=== PATIENT | female | born 1960 | race Caucasian/White ===

== ENCOUNTER 2019-12-14 16:15 | Outpatient (CLI) | payer BC, SELFPAY ==
[2019-12-14 17:33] LABS: Blood Urea Nitrogen 15 mg/dL (7-17); Calcium 9.2 mg/dL (8.4-10.2); Carbon Dioxide 30 mmol/L (22-30); Chloride 105 mmol/L (98-107); Estimated Glomerular Filt Rate > 60; Glucose 112 mg/dL (65-105); Magnesium 2.4 mg/dL (1.6-2.3); Potassium 4.5 mmol/L (3.4-5.0); Sodium 139 mmol/L (137-145)
[2019-12-14 18:29] LABS: Free T4 Free Thyroxine 0.98 ng/mL (0.78-2.19)
== END 2019-12-14 16:16 | disposition home or self-care (01) ==
PROVIDERS: PCP Internal Medicine; Visit Provider Internal Medicine
DX: R00.2 Palpitations (principal)
CPT/HCPCS: 36415; 80048; 83735; 84439; 84443

== ENCOUNTER → 2020-06-05 13:29 | Outpatient (CLI) | payer BC, SELFPAY ==
--- NOTE | ~2020-06-05 | MM_ITS ---
EXAMINATION: MM screening caio BI w frida HISTORY: Screening TECHNIQUE: Craniocaudal and mediolateral oblique 3-D tomosynthesis images were obtained and synthetic 2-D images were generated. CAD analysis was submitted and interpreted. COMPARISON: Comparison to multiple prior studies sequentially, with oldest reviewed study dated 07/07. BREAST PARENCHYMAL COMPOSITION: There are scattered areas of fibroglandular density. FINDINGS: There is no evidence of suspicious mass, calcification, or architectural distortion to sugg est malignancy in either breast. There has been no suspicious interval change. IMPRESSION: 1. No mammographic evidence of malignancy. 2. Recommend routine screening mammography in one year. BI-RADS Category 1: Negative Reviewed, dictated and finalized at location A.
== END ==
PROVIDERS: PCP Internal Medicine; Visit Provider Student in an Organized Health Care Education/Training Program
DX: Z12.31 Encounter for screening mammogram for malignant neoplasm of breast (principal)
CPT/HCPCS: 77063; 77067

== ENCOUNTER 2020-08-14 01:18 | Outpatient (CLI) | payer BC, SELFPAY ==
[2020-08-14 19:47] LABS: SARS-CoV-2 RNA PCR Negative
== END 2020-08-14 01:19 | disposition home or self-care (01) ==
LOC: ANHCOVIDDT 01:19
PROVIDERS: PCP Internal Medicine; Visit Provider Internal Medicine Critical Care Medicine
DX: Z20.828 Contact with and (suspected) exposure to other viral communicable diseases (principal)
CPT/HCPCS: 87635; C9803; U0003

== ENCOUNTER 2020-09-11 00:37 | Outpatient (CLI) | payer BC, SELFPAY ==
[2020-09-11 18:51] LABS: SARS-CoV-2 RNA PCR Negative
== END 2020-09-11 00:38 | disposition home or self-care (01) ==
LOC: ANHCOVIDDT 00:37
PROVIDERS: PCP Internal Medicine; Visit Provider Internal Medicine Critical Care Medicine
DX: R68.89 Other general symptoms and signs (principal); Z20.828 Contact with and (suspected) exposure to other viral communicable diseases
CPT/HCPCS: 87635; C9803; U0003

== ENCOUNTER 2020-09-18 02:39 | Outpatient (CLI) | payer BC, SELFPAY ==
[2020-09-18 22:41] LABS: SARS-CoV-2 RNA PCR Negative
== END 2020-09-18 02:40 | disposition home or self-care (01) ==
LOC: ANHCOVIDDT 02:39
PROVIDERS: PCP Internal Medicine; Visit Provider Internal Medicine Critical Care Medicine
DX: R68.89 Other general symptoms and signs (principal); Z20.828 Contact with and (suspected) exposure to other viral communicable diseases
CPT/HCPCS: 87635; C9803; U0003

== ENCOUNTER 2020-09-20 08:33 | Outpatient (CLI) | payer BC, SELFPAY ==
--- NOTE | 2020-11-06 14:15 | WPDSLEEPSTUD ---
Sleep Study Date of Study: 09/20/20 Ordering Provider: Rashid Easton MD Interpreting Physician: Monika Shaw MD Sleep Study Type: Polysomnogram Height: 1.73 m Weight: 99.79 kg Body Mass Index: 33.4 Neck Circumference: 40.64 cm [place]: 6 Reason for Sleep Study Hypersomnia Sleep History Beckie Pena is a 60-year-old female with a history of mild obstructive sleep apnea on a basic nocturnal polysomnogram June 13, 2019. Her AHI was 6.5. Her REM AHI was 18.6 in the lateral position. She did not have supine REM on the test. She presents to repeat this study with a sleep aid. She has a history of snoring at night frequently and frequently this is loud enough that others complain about it. She wakes up several times at night to urinate. She is able to fall asleep but wakes up every 1-2 hours. She has used sleeping pills to help initiate sleep. She occasionally has trouble sleeping with a cold, does not sweat excessively at night. She occasionally has breathing problems at night observed by others. She rarely notices her heart pounding or beating irregularly at night. She does not fall asleep involuntarily or while driving. She does not have loss of muscle tone with strong emotion. She rarely has daytime difficulties due to excessive sleepiness. She does not have a feeling of paralysis on waking or falling asleep and does not have vivid dreamlike scenes upon awakening or falling asleep. She occasionally remembers her dreams. She does not have feelings of sadness, depression, or anxiety. She does not have muscular tension. She frequently has crawly and achy feelings in her legs, denies leg pain at night. She denies Morning jaw pain. She rarely grinds her teeth during sleep. She occasionally is bothered by pain at night and frequently wakes up feeling stiff in the morning. She has palpitations, depression, fatigue, memory problems, is not bothered by pain during the day and is not awakened by pain at night. She occasionally wakes up feeling stiff in the morning with sore achy muscles. She rarely wakes with pain in the neck and spine. she takes omeprazole regularly. She has memory problems and palpitations. She wakes up feeling refreshed only occasionally. Bedtime is 10 p.m., taking 10-15 minutes to fall asleep, typically waking 3 to 4 times at night for 10-15 minutes. During that time, she will go to the bathroom and take another melatonin. She wakes up in the morning at 57:00 am. On the weekend, she goes to bed at 10:00 pm, wakes at 8:00 am. She does not take naps. A short nap may be refreshing. She is drowsy in the morning for 1 hour or longer. She feels better in the afternoon. Habits: Quit tobacco 10 years ago. Three cups of caffeine per day. Occasional alcohol. No recreational drugs. [facility] Past Medical History Medical History (Updated 11/07/20 @ 18:18 by Monika Shaw MD) Adult BMI 39.0-39.9 kg/sq m BMI 36.0-36.9,adult BMI 37.0-37.9, adult Chronic pain of left knee Cough Encounter for general adult medical examination w/o abnormal findings GERD (gastroesophageal reflux disease) Grade I diastolic dysfunction Heart burn Heart palpitations High triglycerides History of COVID-19 History of superficial phlebitis Hyperlipidemia Hypersomnia Hypertension Neck pain Neck pain on left side On shelter drug therapy PVC (premature ventricular contraction) Varicosities of leg Vitamin D deficiency Family History Family History Mother Family history of arthritis Father Family history of chronic obstructive pulmonary disease Family history of lung cancer Grandparent Diabetes mellitus Family history of malignant neoplasm of esophagus Family history of emphysema Family history of throat cancer Sibling Family history of malignant melanoma Social History Social History Smoking status: Never sm
[2020-11-07 18:17] VITALS: BMI 33.4
== END 2020-09-20 08:34 | disposition home or self-care (01) ==
LOC: ANHCSM 08:45
PROVIDERS: PCP Internal Medicine; Visit Provider Internal Medicine
DX: G47.10 Hypersomnia, unspecified (principal); G47.33 Obstructive sleep apnea (adult) (pediatric)
CPT/HCPCS: 95810

== ENCOUNTER 2020-10-01 09:10 | Outpatient (NON) | payer BC, SELFPAY ==
[2020-10-01 17:11] LABS: SARS-CoV-2 RNA PCR Positive
== END 2020-10-01 09:11 ==
LOC: ANHCOVIDDT 09:11
PROVIDERS: PCP Internal Medicine; Visit Provider Internal Medicine
DX: U07.1 COVID-19 (principal)
CPT/HCPCS: 87635; C9803; U0003

== ENCOUNTER → 2021-02-05 08:49 | Outpatient (CLI) | payer BC, SELFPAY ==
--- NOTE | ~2021-02-05 | XR_ITS ---
EXAMINATION: XR lumbar spine 6V w bending DATE: 02/05/2021 09:40 INDICATION: Low back pain TECHNIQUE: Anteroposterior, lateral in neutral, flexion and extension, and bilateral oblique views of the lumbar spine, and cone-down lateral view of the lumbosacral junction were obtained. COMPARISON: 12/13/2018 FINDINGS: There is a stable, chronic compression fracture T11 with 3/5 loss of central vertebral body height. There is severe loss of intervertebral disc space height at L5-S1, unchanged. The remaining intervertebral disc space heights are normal. The lumbar vertebral body heights are maintained. There is no lumbar fracture. Bone alignment is normal. There is no laxity with flexion or extension. There is moderate to severe facet osteoarthritis of the lower lumbar spine. A moderate volume of colonic s tool is present. IMPRESSION: 1. Severe lower lumbar spondylosis without acute findings or significant interval change. 2. Chronic T11 compression fracture without significant change. Reviewed, dictated and finalized at location A. IMPRESSION: 1. Severe lower lumbar spondylosis without acute findings or significant interv al change. 2. Chronic T11 compression fracture without significant change.
== END ==
PROVIDERS: PCP Internal Medicine; Visit Provider Internal Medicine
DX: M47.817 Spondylosis without myelopathy or radiculopathy, lumbosacral region (principal); M48.54XA Collapsed vertebra, not elsewhere classified, thoracic region, initial encounter for fracture
CPT/HCPCS: 72114

== ENCOUNTER → 2021-03-21 13:45 | Outpatient (REF) | payer BC, SELFPAY | LOC: ANHLAB 13:45 | PROVIDERS: PCP Internal Medicine; Visit Provider Nurse Practitioner | DX: D49.2 Neoplasm of unspecified behavior of bone, soft tissue, and skin (principal) | CPT/HCPCS: 88305 ==

== ENCOUNTER 2021-03-29 21:04 | Emergency (ER) | payer BC, SELFPAY ==
--- NOTE | ~2021-03-29 | XR_ITS ---
EXAMINATION: XR knee LT min 4V DATE: 03/29/2021 21:37 INDICATION: Left knee pain. TECHNIQUE: 4 views of left knee were obtained. COMPARISON: None. FINDINGS: Bone alignment is normal. No fracture. There is mild tricompartmental osteoarthritis. No kn ee joint effusion. IMPRESSION: 1. Mild left knee osteoarthritis. Reviewed, dictated and finalized at location A.
--- NOTE | ~2021-03-29 | XR_ITS ---
EXAMINATION: XR foot LT min 3V DATE: 03/29/2021 21:38 INDICATION: Left foot pain. TECHNIQUE: 4 views of left foot were obtained. COMPARISON: None. FINDINGS: There is a nondisplaced, comminuted, intra-articular fracture of base of fifth metatarsal. There is mild osteoarthritis of some of the midfoot joints and interphalangeal joints. There are enth esophytes at the posterior and plantar aspects of calcaneal tuberosity. IMPRESSION: 1. Nondisplaced, comminuted, intra-articular fracture of base of fifth metatarsal. Reviewed, dictated and finalized at location A. IMPRESSION: 1. Nondisplaced, comminuted, intra-articular fracture of base of fifth metatars al.
--- NOTE | ~2021-03-29 | XR_ITS ---
EXAMINATION: XR hand LT min 3V DATE: 03/29/2021 21:39 INDICATION: Left hand pain. TECHNIQUE: 3 views of left hand were obtained. COMPARISON: None. FINDINGS: Bone alignment is normal. No fracture. There is mild osteoarthritis of triscaphe joint, fir st carpometacarpal joint, and some of the metacarpophalangeal joints and interphalangeal joints. Ther e is moderate osteoarthritis of third distal interphalangeal joint and severe osteoarthritis of secon d distal interphalangeal joint. IMPRESSION: 1. Polyarticular osteoarthritis. Reviewed, dictated and finalized at location A.
[2021-03-29 21:07] VITALS: BP 151/81; PULSE 84; RESP 18; TEMP 36.6; O2SAT 98
[2021-03-29 21:42] VITALS: BP 141/84; PULSE 75; RESP 14; TEMP 36.9; O2SAT 100
--- NOTE | 2021-03-29 21:52 | ED.FALL ---
HPI - Fall General Chief Complaint: Fall Stated Complaint: fall, left foot knee and hand pain Time Seen by Provider: 03/29/21 21:31 Source: RN notes reviewed History of Present Illness HPI Narrative: Patient presents to emergency department from home for fall. Patient states that just prior to arrival she was walking in heels when she slipped on her left foot and her left foot rolled she states she fell to the ground catching herself with her left lateral hand striking her left knee patient notes pain in her left lateral foot as well as her left lateral hand and her left knee she denies striking her head or any loss of consciousness she denies any chest pain shortness of breath abdominal pain nausea vomiting or any other symptoms. States she is taking no medication for the pain Related Data Allergies Allergy/AdvReac Type Severity Reaction Status Date / Time nitrofurantoin Allergy Itching Verified 03/29/21 21:11 [From Macrobid] Review of Systems Review of Systems: Narrative: Gen.: Denies fevers or chills Eyes: Denies eye pain or visual change ENT: Denies facial pain Respiratory: Denies shortness of breath CV: Denies chest pain GI: Denies abdominal pain nausea, emesis Musculoskeletal: See HPI Neuro: Denies head injury or loss of consciousness Skin: Denies rash Except as documented, all other systems reviewed and negative [facility] Past Medical History Medical History (Updated 03/29/21 @ 21:56 by Evens Dean DO) Patient denies significant medical history Family History Family History (Updated 06/01/14 @ 07:13 by DOCTOR UNKNOWN) Grandparent Family history of chronic obstructive pulmonary disease Family history of throat cancer Other Diabetes mellitus Social History Social History Smoking status: Former smoker Alcohol intake: current Exam Narrative: Exam Narrative: APPEARANCE: No acute distress, nontoxic, resting in bed EYES: EOMI HEENT: Normocephalic, atraumatic, OMM TMs clear bilaterally RESPIRATORY: No respiratory distress Clear to auscultation bilaterally with no rhonchi wheezing or rales. CARDIOVASCULAR: Regular rate and rhythm without murmurs rubs or gallops. ABDOMINAL: Soft, nontender, nondistended, no rebound or guarding MUSCULOSKELETAl: Moves all extremities. No clubbing, cyanosis or edema. No tenderness of the right upper and lower extremity, tender palpation of the left lateral dorsal hand over the fourth and fifth metacarpal no tenderness remainder of the hand or wrist full flexion-extension of all 5 MCP and IP joints, radial pulse 2+ neurovascular intact no tenderness of the left elbow or wrist, no tenderness of the left hip, tender palpation left anterior knee with mild abrasion for range of motion without pain, no tenderness to left ankle, tender palpation of the left lateral foot at the base of the fifth metatarsal dorsalis pedis pulse 2+ neurovascular intact NEURO: Awake and alert x 4. Following commands, speech normal, no focal deficits SKIN:: Warm, dry. No rashes lesions or abrasions PSYCHIATRIC: Normal affect/mood, Course Course Emergency Course: Patient states she fractured her right fifth metatarsal approximately 6 years ago states she does have a boot at her house from that Discussed with patient results of workup and diagnosis. Discussed need for follow-up with primary care, proper use of medication, and reasons to return to the emergency department. Patient understands and agrees to current treatment plan Vital Signs Vital signs: Vital Signs Temperature 97.8 F 03/29/21 21:07 Pulse Rate 84 03/29/21 21:07 Respiratory Rate 18 03/29/21 21:07 Blood Pressure 151/81 H 03/29/21 21:07 Pulse Oximetry 98 03/29/21 21:07 Temperature 98.4 F 03/29/21 21:42 Pulse Rate 75 03/29/21 21:42 Respiratory Rate 14 03/29/21 21:42 Blood Pressure 141/84 H 03/29/21 21:42 Pulse Oximetry 100 03/29/21 21:42 M
[2021-03-29] MEDS: HYDROcodone/acetaminophen (*CRX) 5-325 MG TABLET 1 TAB PO (22:00)
== END 2021-03-29 22:12 | disposition home or self-care (01) ==
PROVIDERS: Emergency Provider Emergency Medicine; PCP Internal Medicine
DX: S92.355A Nondisplaced fracture of fifth metatarsal bone, left foot, initial encounter for closed fracture (principal); S80.02XA Contusion of left knee, initial encounter; S60.222A Contusion of left hand, initial encounter; Z87.891 Personal history of nicotine dependence; W01.0XXA Fall on same level from slipping, tripping and stumbling without subsequent striking against object, initial encounter
CPT/HCPCS: 73130; 73564; 73630; 99284; A9270

== ENCOUNTER 2021-09-20 00:17 | Day surgery (SDC) | payer BC, SELFPAY ==
[2021-09-11 13:35] VITALS: BMI 38.2
--- NOTE | 2021-09-19 13:42 | PM.HPGS ---
History of Present Illness History of Present Illness Consent: Risks, benefits, and alternatives have been discussed and questions answered. Patient agrees to proceed with procedure. Chief complaint: hx of colon polyps Narrative: Beckie Pena is a 61 year old female referred for colon cancer screening. She had 3 polyps removed 7 years ago Review of Systems Review of Systems: All systems reviewed & are unremarkable except as noted in HPI and below PMFSH Past Medical History Medical History Adult BMI 39.0-39.9 kg/sq m Bilateral foot pain BMI 36.0-36.9,adult BMI 37.0-37.9, adult Chronic pain of left knee Colon cancer screening Cough DJD (degenerative joint disease) of knee Encounter for general adult medical examination w/o abnormal findings Encounter for preventive health examination GERD (gastroesophageal reflux disease) Grade I diastolic dysfunction Heart burn Heart palpitations High triglycerides History of COVID-19 History of superficial phlebitis Hx of colonic polyps Hyperlipidemia Hypersomnia Hypertension Low back pain Lumbar radiculopathy Neck pain Neck pain on left side Non-healing skin lesion On terminal make up operator drug therapy FLORY on CPAP Patient denies significant medical history PVC (premature ventricular contraction) Varicosities of leg Vitamin D deficiency Family History Family History Mother Family history of arthritis Father Family history of chronic obstructive pulmonary disease Family history of lung cancer Grandparent Diabetes mellitus Family history of malignant neoplasm of esophagus Family history of emphysema Family history of throat cancer Sibling Family history of malignant melanoma Grandparent Family history of chronic obstructive pulmonary disease Family history of throat cancer Social History Social History Smoking status: Former smoker Tobacco type: cigarettes Second hand tobacco smoke exposure: No Smoking end date: 10/05/06 Alcohol intake: current Alcohol use details: Monthly Substance use: never Living arrangements: with family Spiritual care concerns: No Meds Home Medications and Allergies Home Medications Medication Instructions Recorded Confirmed Type ginkgo biloba 120 mg tablet 120 mg PO DAILY 12/14/19 09/20/21 History mecobalamin (vitamin B12) 5,000 2,500 mcg PO DAILY tablet 12/14/19 09/20/21 History mcg disintegrating tablet niacin 50 mg tablet 500 mg PO DAILY tablet 07/19/20 09/20/21 History cholecalciferol (vitamin D3) 25 25 mcg PO DAILY 10/11/20 09/20/21 History mcg (1,000 unit) tablet omega-3 fatty acids 1,000 mg 2,000 mg PO DAILY cap 10/11/20 09/20/21 History capsule zinc 50 mg tablet 50 mg PO DAILY 10/11/20 09/20/21 History lysine 500 mg tablet 500 mg PO DAILY 02/05/21 09/20/21 History melatonin 12 mg tablet 12 mg PO HS 02/05/21 09/20/21 History omeprazole 40 mg capsule,delayed 40 mg PO DAILY #90 cap 03/12/21 09/20/21 Rx release calcium carbonate 500 mg calcium 500 mg PO DAILY 07/08/21 09/20/21 History (1,250 mg) tablet tramadol 50 mg tablet 100 mg PO Q6H PRN #30 tablet 08/14/21 09/20/21 Rx Nexlizet 1 tablet PO DAILY 09/11/21 09/20/21 History cyclobenzaprine 10 mg PO TID PRN 09/11/21 09/20/21 History hydrochlorothiazide 12.5 mg PO DAILY 09/11/21 09/20/21 History metoprolol tartrate 12.5 mg PO BID 09/11/21 09/11/21 History trazodone 50 - 100 mg PO HS PRN 09/11/21 09/20/21 History Allergies Allergy/AdvReac Type Severity Reaction Status Date / Time nitrofurantoin Allergy Unknown Itching Verified 09/20/21 06:49 prednisone Allergy Unknown Agitated Verified 09/20/21 06:49 [id number]-[id number]-DbS Reductase AdvReac Mild myalgia Verified 09/20/21 06:49 Inhibitor [Wlbnjbf-Kjq-Tby Reductase Inhibitor] Exam Resp: Auscultation: clear to a
[2021-09-20 06:51] VITALS: BP 149/83; PULSE 84; RESP 17; TEMP 37.1; O2SAT 99; BMI 39.1
[2021-09-20] MEDS: LACTATED RINGERS 1,000 ML 150 ML IV CONT (06:55)
--- NOTE | 2021-09-20 07:06 | WPDANESEPPF ---
Anes - Initial Pre Proc Eval Procedure: Operation Date: 09/20/21 08:00 Proposed Procedures p Screening Colonoscopy - Molina Champion MD Date/Time: 09/20/21 07:06 Surgeon: Molina Champion MD Pre Op Diagnosis: hx of colon polyps Patient Data Age: 61 Gender: F Height: 1.73 m Weight: 116.7 kg Last Vital Signs Temp 37.1 C 09/20/21 06:51 Pulse 84 09/20/21 06:51 Resp 17 09/20/21 06:51 BP 149/83 H 09/20/21 06:51 Pulse Ox 99 09/20/21 06:51 Allergies Allergy/AdvReac Type Severity Reaction Status Date / Time nitrofurantoin Allergy Unknown Itching Verified 09/20/21 06:49 prednisone Allergy Unknown Agitated Verified 09/20/21 06:49 Jxeqegh-[id number]-XmM Reductase AdvReac Mild myalgia Verified 09/20/21 06:49 Inhibitor [Ouvyaeu-Cxv-Rti Reductase Inhibitor] Home Medications Medication Instructions Recorded Confirmed Type ginkgo biloba 120 mg tablet 120 mg PO DAILY 12/14/19 09/20/21 History mecobalamin (vitamin B12) 5,000 2,500 mcg PO DAILY tablet 12/14/19 09/20/21 History mcg disintegrating tablet niacin 50 mg tablet 500 mg PO DAILY tablet 07/19/20 09/20/21 History cholecalciferol (vitamin D3) 25 25 mcg PO DAILY 10/11/20 09/20/21 History mcg (1,000 unit) tablet omega-3 fatty acids 1,000 mg 2,000 mg PO DAILY cap 10/11/20 09/20/21 History capsule zinc 50 mg tablet 50 mg PO DAILY 10/11/20 09/20/21 History lysine 500 mg tablet 500 mg PO DAILY 02/05/21 09/20/21 History melatonin 12 mg tablet 12 mg PO HS 02/05/21 09/20/21 History omeprazole 40 mg capsule,delayed 40 mg PO DAILY #90 cap 03/12/21 09/20/21 Rx release calcium carbonate 500 mg calcium 500 mg PO DAILY 07/08/21 09/20/21 History (1,250 mg) tablet tramadol 50 mg tablet 100 mg PO Q6H PRN #30 tablet 08/14/21 09/20/21 Rx bempedoic acid-ezetimibe [Nexlizet] 1 tablet PO DAILY 09/11/21 09/20/21 History cyclobenzaprine 10 mg PO TID PRN 09/11/21 09/20/21 History hydrochlorothiazide 12.5 mg PO DAILY 09/11/21 09/20/21 History metoprolol tartrate 12.5 mg PO BID 09/11/21 09/11/21 History trazodone 50 - 100 mg PO HS PRN 09/11/21 09/20/21 History Patient hx anesthesia problems: none Family hx anesthesia problems: none Results Review: All pre-operative results and documents have been reviewed as part of the pre-operative evaluation. [facility] Past Medical History Medical History Adult BMI 39.0-39.9 kg/sq m Bilateral foot pain BMI 36.0-36.9,adult BMI 37.0-37.9, adult Chronic pain of left knee Colon cancer screening Cough DJD (degenerative joint disease) of knee Encounter for general adult medical examination w/o abnormal findings Encounter for preventive health examination GERD (gastroesophageal reflux disease) Grade I diastolic dysfunction Heart burn Heart palpitations High triglycerides History of COVID-19 History of superficial phlebitis Hx of colonic polyps Hyperlipidemia Hypersomnia Hypertension Low back pain Lumbar radiculopathy Neck pain Neck pain on left side Non-healing skin lesion On terminal make up operator drug therapy FLORY on CPAP Patient denies significant medical history PVC (premature ventricular contraction) Varicosities of leg Vitamin D deficiency Family History Family History Mother Family history of arthritis Father Family history of chronic obstructive pulmonary disease Family history of lung cancer Grandparent Diabetes mellitus Family history of malignant neoplasm of esophagus Family history of emphysema Family history of throat cancer Sibling Family history of malignant melanoma Grandparent Family history of chronic obstructive pulmonary disease Family history of throat cancer Social History Social History Smoking status: Former smoker Tobacco type: cigarettes Second hand tobacco smoke exposure: No Smoking end date: 10/05/06 Alcoh
[2021-09-20 08:09] VITALS: BP 98/53; PULSE 56; RESP 12; O2SAT 97
[2021-09-20 08:22] VITALS: BP 106/58; PULSE 54; RESP 12; O2SAT 100
[2021-09-20 08:29] VITALS: BP 133/68; PULSE 57; RESP 12; O2SAT 100
== END 2021-09-20 08:38 | disposition home or self-care (01) ==
PROVIDERS: PCP Internal Medicine; Visit Provider Internal Medicine Gastroenterology
PROC: 0DJD8ZZ Inspection of Lower Intestinal Tract, Via Natural or Artificial Opening Endoscopic (ICD-10-PCS; CPT 45378; principal; 2021-09-20 08:00)
DX: Z12.11 Encounter for screening for malignant neoplasm of colon (principal); Z86.010 Personal history of colon polyps; M19.90 Unspecified osteoarthritis, unspecified site; K21.9 Gastro-esophageal reflux disease without esophagitis; R00.2 Palpitations; E78.1 Pure hyperglyceridemia; Z86.16 Personal history of COVID-19; E78.5 Hyperlipidemia, unspecified; G47.10 Hypersomnia, unspecified; I10 Essential (primary) hypertension; M54.16 Radiculopathy, lumbar region; G47.33 Obstructive sleep apnea (adult) (pediatric); I49.3 Ventricular premature depolarization; E55.9 Vitamin D deficiency, unspecified; I83.90 Asymptomatic varicose veins of unspecified lower extremity; Z87.891 Personal history of nicotine dependence; E66.01 Morbid (severe) obesity due to excess calories; Z68.39 Body mass index [BMI] 39.0-39.9, adult
CPT/HCPCS: 45378; J2001; J2704; J7120

== ENCOUNTER → 2021-11-22 13:20 | Outpatient (CLI) | payer BC, SELFPAY ==
--- NOTE | ~2021-11-22 | MM_ITS ---
EXAMINATION: MM screening caio BI w frida HISTORY: Screening TECHNIQUE: Craniocaudal and mediolateral oblique 3-D tomosynthesis images were obtained and synthetic 2-D images were generated. CAD analysis was submitted and interpreted. COMPARISON: Comparison to multiple prior studies sequentially, with oldest reviewed study dated 01/22. BREAST PARENCHYMAL COMPOSITION: There are scattered areas of fibroglandular density. FINDINGS: There are developing asymmetries in the upper outer quadrant of the right breast, middle th ird. The left breast is stable without evidence for malignancy. IMPRESSION: 1. Developing right breast asymmetries. 2. Additional mammographic views and possible breast ultrasound are recommended. BI-RADS Category 0: Incomplete: Needs additional imaging evaluation. Reviewed, dictated and finalized at location A. HT CHECKER IMPRESSION: 1. Developing right breast asymmetries. 2. Additional mammographic views and possible breast ultrasound are recommended . BI-RADS Category 0: Incomplete: Needs additional imaging evaluation.
== END ==
PROVIDERS: PCP Internal Medicine; Visit Provider Obstetrics & Gynecology
DX: Z12.31 Encounter for screening mammogram for malignant neoplasm of breast (principal); R92.8 Other abnormal and inconclusive findings on diagnostic imaging of breast
CPT/HCPCS: 77063; 77067

== ENCOUNTER → 2021-11-29 09:11 | Outpatient (CLI) | payer BC, SELFPAY ==
--- NOTE | ~2021-11-29 | MMUS_ITS ---
EXAMINATION: MM diagnostic caio RT w frida, US breast RT limited HISTORY: Follow-up right breast asymmetries TECHNIQUE: Additional 3-D tomosynthesis images of the right breast were performed and synthetic 2-D i mages were generated. CAD analysis was submitted and interpreted. High resolution Limited right breas t ultrasound was performed. COMPARISON: Comparison to multiple prior studies sequentially, with oldest reviewed study dated 01/22. BREAST PARENCHYMAL COMPOSITION: Breast composed of scattered areas of fibroglandular density. FINDINGS: MAMMOGRAPHIC FINDINGS: There are no suspicious masses, calcifications or architectural distortion in the right breast to sug gest malignancy. Area of asymmetry is less dense with spot compression views in the upper outer quadr ant. ULTRASOUND: Limited right breast ultrasound: At 10:00, 5 cm from the nipple, there is an oval hypoechoic mass skip suring 6 x 4 x 5 mm without internal vascularity or significant posterior features, likely benign. At 11:00, 4 cm from the nipple, there is an oval hypoechoic mass measuring 4 x 2 x 4 mm, likely benign. Parallel orientation, no internal vascularity and no posterior features. IMPRESSION: 1. Probable benign right breast masses. 2. Recommend 6 month follow-up Limited right breast ultrasound BI-RADS category 3, probably benign findings. Reviewed, dictated and finalized at location B. LEADER IMPRESSION: 1. Probable benign right breast masses. 2. Recommend 6 month follow-up Limited right breast ultrasound BI-RADS category 3, probably benign findings.
== END ==
PROVIDERS: PCP Internal Medicine; Visit Provider Obstetrics & Gynecology
DX: R92.8 Other abnormal and inconclusive findings on diagnostic imaging of breast (principal)
CPT/HCPCS: 76642; 77061; 77065; G0279

== ENCOUNTER → 2021-12-13 13:17 | Outpatient (CLI) | payer BC, SELFPAY ==
--- NOTE | ~2021-12-13 | XR_ITS ---
EXAMINATION: XR hand LT min 3V INDICATION: Unspecified injury of unspecified wrist TECHNIQUE: Three views of the left hand are obtained. COMPARISON: 03/29/2021 FINDINGS: There is no fracture, dislocation, or subluxation. Mild osteoarthritis is again noted at th e triscaphe and first carpometacarpal joints. There is unchanged severe osteoarthritis of the second distal interphalangeal joint. Mild osteoarthritis is seen in multiple additional interphalangeal join ts. The soft tissues are unremarkable. IMPRESSION: 1. Polyarticular osteoarthritis without significant interval change. Reviewed, dictated and finalized at location B. K DRIVER FLATBED
== END ==
PROVIDERS: PCP Internal Medicine; Visit Provider Internal Medicine
DX: S69.90XA Unspecified injury of unspecified wrist, hand and finger(s), initial encounter (principal); X58.XXXA Exposure to other specified factors, initial encounter; M19.042 Primary osteoarthritis, left hand
CPT/HCPCS: 73130

== ENCOUNTER → 2022-02-24 16:53 | Outpatient (CLI) | payer BC, SELFPAY ==
--- NOTE | ~2022-02-24 | XR_ITS ---
EXAM: XR lumbar spine 2-3V, XR sacroiliac joints min 3V DATE: 02/24/2022 17:58 HISTORY: Low Back pain . COMPARISON: 02/05/2021. FINDINGS: Severe degenerative disc disease at L5-S1. Standing neutral flexion and extension views re veal no change in alignment. Vertebral body heights are maintained. Stable chronic T11 compression fr acture. SI joints are symmetric, without erosion. Pelvic fibulas. Surgical vascular clips project ove r the right lower abdomen/upper pelvis. IMPRESSION: No dynamic listhesis. Severe degenerative disc disease at L5-S1. Normal SI joints. Reviewed, dictated and finalized at location K. IMPRESSION: No dynamic listhesis. Severe degenerative disc disease at L5-S1. No rmal SI joints.
== END ==
PROVIDERS: PCP Internal Medicine; Visit Provider Internal Medicine
DX: M54.16 Radiculopathy, lumbar region (principal); M25.551 Pain in right hip; M51.36 Other intervertebral disc degeneration, lumbar region
CPT/HCPCS: 72100; 72202

== ENCOUNTER → 2022-07-17 07:49 | Outpatient (CLI) | payer BC, SELFPAY ==
--- NOTE | ~2022-07-17 | US_ITS ---
US breast RT limited 07/17/2022 08:59 Indication: Six-month follow-up right breast masses Procedure: High-resolution ultrasound of the right breast. Comparison: Comparison to multiple prior studies sequentially, with oldest reviewed study dated 11/29. Findings: There is a stable 6 mm cyst at 10:00, 5 cm from the nipple. There is a stable cyst measurin g 6 mm at 10:00, 6 cm from the nipple. No suspicious masses to suggest malignancy. Impression: 1: No sonographic evidence for malignancy. Benign findings. Routine yearly screening mammogram and regular clinical breast examination are recommended. BI-RADS CATEGORY 2 - BENIGN FINDINGS Reviewed, dictated and finalized at location A. Impression: 1: No sonographic evidence for malignancy. Benign findings. Routine yearly screening mammogram and regular clinical breast examination are recommended. BI-RADS CATEGORY 2 - BENIGN FINDINGS
== END ==
PROVIDERS: PCP Internal Medicine; Visit Provider Obstetrics & Gynecology
DX: R92.8 Other abnormal and inconclusive findings on diagnostic imaging of breast (principal)
CPT/HCPCS: 76642

== ENCOUNTER → 2022-11-17 11:54 | Outpatient (CLI) | payer BC, SELFPAY ==
--- NOTE | ~2022-11-17 | XR_ITS ---
EXAMINATION: XR chest 2V DATE: 11/17/2022 12:07 INDICATION: Cough. TECHNIQUE: Frontal and lateral views of the chest were obtained. COMPARISON: Chest 2 views 11/09/2017 FINDINGS: The chest demonstrates clear lungs without pneumonia, pleural effusion, or pneumothorax. Th e heart size is normal. There is a chronic compression fracture of T11. IMPRESSION: 1. No acute cardiopulmonary disease. Reviewed, dictated and finalized at location A. YSIS RN
== END ==
PROVIDERS: PCP Internal Medicine; Visit Provider Internal Medicine
DX: R05.9 Cough, unspecified (principal); R53.83 Other fatigue
CPT/HCPCS: 71046

== ENCOUNTER 2022-11-19 08:23 | Outpatient (CLI) | payer BC, SELFPAY ==
--- NOTE | ~2022-11-19 | NM_ITS ---
EXAMINATION: NM dipak stress w perfusion DATE: 11/19/2022 13:28 INDICATION: Chest tightness. Dyspnea on exertion. TECHNIQUE: Rest images were obtained following intravenous administration of 10.4 mCi Tc99m tetrofosm in (Myoview). The patient was infused intravenously with Lexiscan (regadenoson). Then, 31.7 mCi Tc99m tetrofosmin (Myoview) was administered intravenously, and stress images were obtained. Data was sherice nstructed into short axis and horizontal and vertical long axis SPECT images. Gated SPECT images were also obtained. COMPARISON: None. FINDINGS: There is no definite reversible or fixed perfusion abnormality to suggest ischemia or infar ction. There is no segmental wall motion abnormality. Left ventricular ejection fraction measures 6 5%. IMPRESSION: 1. No definite ischemia or infarct. 2. Normal left ventricular ejection fraction measuring 65%. Reviewed, dictated and finalized at location A. HANDLER
--- NOTE | 2022-11-19 08:51 | ECHO_ITS ---
Patient Info Name: Beckie Pena Age: 62 years : 1960 Gender: Female Ht: 68 in Wt: 240 lbs BSA: 2.33 m2 HR: 78 bpm BP: 142 / 80 mmHg Technical Quality: Fair Exam Date: 11/19/2022 9:00 AM Exam Location: [facility] Pulmonary Patient Status: Outpatient Admit Date: 11/19/2022 Staff Ordering Physician: Rashid Easton MD Director Database: Alyssa Plummer RDCS Attending Provider: Rashid Easton MD Referring Physician: Rustam ZAIDI; Exam Type: CA echo doppler color flow Study Info Indications - chest pain Complete two-dimensional, color flow and Doppler transthoracic echocardiogram is performed. Summary 1. Complete two-dimensional, color flow and Doppler transthoracic echocardiogram is performed. 2. Left ventricular chamber dimension is mildly enlarged. 3. Left ventricular systolic function is normal, estimated at 60-65%. 4. There is mild concentric increased left ventricular wall thickness. 5. The left ventricular diastolic function is grade II diastolic dysfunction. 6. E/e' 11 is mildly elevated. 7. Left atrial chamber dimension is mildly enlarged. 8. The mitral valve has mildly calcified annulus. 9. There is mild mitral valve regurgitation. 10. There is mild tricuspid valve regurgitation. 11. No pulmonary hypertension, estimated pulmonary arterial systolic pressure is 28 mmHg. Left Ventricle E/e' 11 is mildly elevated. Left ventricular chamber dimension is mildly enlarged. Left ventricular systolic function is normal, estimated at 60-65%. There is mild concentric increased left ventricular wall thickness. The left ventricular diastolic function is grade II diastolic dysfunction. Right Ventricle Right ventricular systolic function is normal and with normal TAPSE 2.2 cm. Right ventricular chamber dimension is normal. Left Atria Left atrial chamber dimension is mildly enlarged. Right Atria Right atrial chamber dimension is normal. Aortic Valve The aortic valve is trileaflet. There is no aortic valve stenosis. There is no aortic valve regurgitation. Pulmonic Valve There is no pulmonic regurgitation. Mitral Valve The mitral valve has mildly calcified annulus. There is no mitral valve stenosis. There is mild mitral valve regurgitation. Tricuspid Valve There is mild tricuspid valve regurgitation. No pulmonary hypertension, estimated pulmonary arterial systolic pressure is 28 mmHg. Pericardium/Pleural There is no pericardial effusion. Inferior Vena Cava Normal inferior vena cava with >50% collapse upon inspiration consistent with normal right atrial pressure, 5 mmHg. Aorta The aortic root size at the sinus of Valsalva is normal. Left Ventricular Outflow Tract Name Value Normal LVOT 2D LVOT Diameter 2.0 cm LVOT Doppler LVOT Peak Gradient 5 mmHg LVOT Mean Gradient 3 mmHg LVOT VTI 27 cm LVOT VTI/AV VTI Ratio 0.8 LVOT Stroke Volume 84 ml LVOT CO 15.4 l/min LVOT C
--- NOTE | 2022-11-19 09:42 | EST_ITS ---
Patient Info Name: Beckie Pena Age: 62 years : 1960 Gender: Female Ht: 68 in Wt: 240 lbs BSA: 2.33 m2 HR: 42 bpm BP: 124 / 81 mmHg Heart Rhythm: Sinus Rhythm Exam Date: 11/19/2022 11:15 AM Exam Location: [facility] Stress Patient Status: Outpatient Admit Date: 11/19/2022 Staff Ordering Physician: Rashid Easton MD Attending Provider: Rashid Easton MD Exercise Technologist: Cary Laureano CT Exercise Physician: Long Villalobos DO Exam Type: CA stress dipak w NM Study Info Indications R07.9 - Chest pain, unspecified A regadenoson stress test was performed. Summary 1. 1. Abnormal lexiscan stress test for ischemic ST changes by ECG criteria. 2. 2. Stable hemodynamics throughout the test. 3. 3. Nuclear scan to follow and will be reported separately. Please correlate with it. 4. 4. Patient informed of the above results. Protocol: Lexiscan Stress ECG Details Stage: REST Duration (min): 1 min : 29 sec HR (bpm): 54 SBP (mmHg): 124 DBP (mmHg): 81 Stage: REST Duration (min): 20 min : 8 sec HR (bpm): 56 SBP (mmHg): 124 DBP (mmHg): 81 Stage: STAGE 1 Duration (min): 1 min : 0 sec HR (bpm): 94 SBP (mmHg): 127 DBP (mmHg): 73 Stage: RECOVERY Duration (min): 1 min : 0 sec HR (bpm): 78 SBP (mmHg): 127 DBP (mmHg): 73 Stage: RECOVERY Duration (min): 2 min : 0 sec HR (bpm): 74 SBP (mmHg): 127 DBP (mmHg): 73 Stage: RECOVERY Duration (min): 3 min : 0 sec HR (bpm): 71 SBP (mmHg): 136 DBP (mmHg): 74 Stage: RECOVERY Duration (min): 3 min : 32 sec HR (bpm): 69 SBP (mmHg): 136 DBP (mmHg): 74 Rest HR: 56 bpm Peak HR: 94 bpm Rest Sys BP: 124 mmHg Peak Sys BP: 136 mmHg Max Pred HR: 160 bpm % Max Pred HR: 59 % Target HR: 136 bpm Max RPP: 12,784 bpm*mmHg Termination Reason: Completed protocol Cardiac Symptoms: Shortness of breath Total Time: 1 min : 0 sec Rest Thompson BP: 81 mmHg Peak Thompson BP: 74 mmHg Total Dose: 0.4 mg Resting ECG Sinus rhythm. Stress ECG [address] depression in leads II, III, avF, V4-V6. Arrhythmias None. Report Signatures
--- NOTE | 2022-11-21 14:56 | WPDHOLTEREM ---
Holter/Event Monitor Holter/Event Monitor Date of procedure: 11/19/22 Holter/Event Procedure: 48 Hr Holter Monitor Indications: Chest pain Conclusion: 1. 48 hour holter monitor on 11/19/22. 2. Underlying rhythm is sinus rhythm. HR range 46-106 bpm; average HR 64 bpm. 3. There are 62 premature supraventricular complexes, 4 supraventricular couplets, 1 supraventricular trigeminy, and 3 supraventricular bigeminy. No supraventricular tachycardia. 4. There are 80 premature ventricular complexes. No ventricular tachycardia. 5. No sinoatrial or atrioventricular blocks. No significant pauses greater than 2 seconds. 6. Patient reports symptoms of chest heaviness, shortness of breath which demonstrate sinus rhythm, HR range 67-79 bpm and an episode with PAC's.
== END 2022-11-19 08:24 | disposition home or self-care (01) ==
PROVIDERS: PCP Internal Medicine; Visit Provider Internal Medicine
DX: R06.02 Shortness of breath (principal); R06.09 Other forms of dyspnea; R07.89 Other chest pain; R00.2 Palpitations; I34.0 Nonrheumatic mitral (valve) insufficiency; I36.1 Nonrheumatic tricuspid (valve) insufficiency
CPT/HCPCS: 78452; 93017; 93225; 93226; 93306; A9502; J2785

== ENCOUNTER 2023-02-11 12:37 | Outpatient (CLI) | payer BC, SELFPAY ==
[2023-02-11 13:53] LABS: Strep Group A RT-PCR NOT DETECTED (Negative)
== END 2023-02-11 12:38 | disposition home or self-care (01) ==
PROVIDERS: PCP Internal Medicine; Visit Provider Internal Medicine
DX: J02.9 Acute pharyngitis, unspecified (principal)
CPT/HCPCS: 87651

== ENCOUNTER 2023-10-10 12:41 | Emergency (ER) | payer BC, SELFPAY ==
--- NOTE | ~2023-10-10 | XR_ITS ---
[id number]_CR DATE: 10/10/2023 13:00 INDICATION: Anterior rib pain TECHNIQUE: PA chest. 3 views of the right ribs. COMPARISON: November 17, 2022 2 view chest FINDINGS: Normal heart size. No hilar or mediastinal enlargement. There is mild thoracic aortic calci fication. No pulmonary infiltrate or consolidation, pleural effusion or pulmonary vascular congestion or pneumo thorax. Degenerative spurring of the thoracic spine. No right rib fracture or bone destruction. IMPRESSION: No evidence of right rib fracture or bone destruction Reviewed, dictated and finalized at Location A. Reviewed, dictated and finalized at location A. ORATE EVENTS DIRECTOR
--- NOTE | 2023-10-10 12:44 | ED.GENADULT ---
HPI - General Adult General Chief complaint: Chest Pain Stated complaint: Cracked Rib Time Seen by Provider: 10/10/23 12:49 Source: patient, RN notes reviewed and old records reviewed Mode of arrival: ambulatory Limitations: no limitations History of Present Illness HPI narrative: 63-year-old female presents to the [facility] with complaints of right anterior lower rib pain since yesterday. Patient states that she was reaching [id number] when she felt a pop and thinks she cracked a rib in the right lower rib area. No treatment prior to arrival No swelling, erythema or ecchymosis noted Onset (ago): day(s) (1) Treatments prior to arrival: none Related Data Home Medications Medication Instructions Recorded Confirmed niacin 50 mg tablet 500 mg PO DAILY 07/19/20 10/02/23 omega-3 fatty acids 1,000 mg 2,000 mg PO DAILY 10/11/20 10/02/23 capsule (Fish Oil Concentrate) zinc 50 mg tablet 50 mg PO DAILY 10/11/20 10/02/23 lysine 500 mg tablet (L-Lysine) 500 mg PO DAILY 02/05/21 10/02/23 calcium carbonate 500 mg calcium 500 mg PO DAILY 07/08/21 10/02/23 (1,250 mg) tablet (Calcium 500) phentermine 15 mg capsule 15 mg PO DAILY 08/18/22 10/02/23 imiquimod 2.5 % topical cream in a 1 pump topical DAILY BCC 10/02/23 10/02/23 pump Allergies Allergy/AdvReac Type Severity Reaction Status Date / Time nitrofurantoin Allergy Unknown Itching Verified 10/02/23 10:07 prednisone Allergy Unknown Agitated Verified 10/02/23 10:07 [id number] Reductase AdvReac Mild myalgia Verified 10/02/23 10:07 Inhibitor [Istlkqq-Ytp-Rse Reductase Inhibitor] Review of Systems Review of Systems: All systems reviewed & are unremarkable except as noted in HPI and below Constitutional: Constitutional: Reports no additional constitutional complaints Eyes: Eyes: Reports no additional eye complaints ENT: Reports system reviewed and no additional complaints, except as documented Cardiovascular: Cardiovascular: Reports no additional cardiovascular complaints, Denies chest pain and Denies dyspnea Respiratory: Respiratory: Reports no additional respiratory complaints, Denies chest congestion, Denies cough and Denies dyspnea Gastrointestinal: Gastrointestinal: Reports no additional gastrointestinal complaints, Denies abdominal pain, Denies nausea and Denies vomiting Musculoskeletal: Musculoskeletal: Reports as per HPI Integumentary/Breasts: Skin/Breast: Reports system reviewed and no additional complaints, except as docu Neurologic: Reports system reviewed and no additional complaints, except as documented Psychiatric: Psychiatric: Reports no additional psychiatric complaints Allergic/Immunologic: Allergic/Immunologic: Reports no additional allergic/immunologic complaints PMFSH Past Medical History Medical History Adult BMI 39.0-39.9 kg/sq m Bilateral foot pain BMI 36.0-36.9,adult BMI 37.0-37.9, adult Chest heaviness Chronic pain of left knee Colon cancer screening Cough DJD (degenerative joint disease) of knee MEHTA (dyspnea on exertion) Encounter for general adult medical examination w/o abnormal findings Encounter for preventive health examination Encounter for routine adult health examination with abnormal findings Family history of melanoma Follow up GERD (gastroesophageal reflux disease) Grade I diastolic dysfunction Grade II diastolic dysfunction Heart burn Heart palpitations High triglycerides History of COVID-19 History of superficial phlebitis Hoarseness Hx of colonic polyps Hyperlipidemia Hypersomnia Hypertension Insomnia Low back pain Lumbar radiculopathy Neck pain Neck pain on left side Non-healing skin lesion On termite control service representative drug therapy FLORY on CPAP Overweight Patient denies significant medical history Pre-diabetes PVC (premature ventricular contraction) SK (seborrheic keratosis) Thrombophlebitis of superficial veins of left lower extremity Varicose v
[2023-10-10 12:46] VITALS: BP 127/65; PULSE 62; RESP 16; TEMP 36.4; O2SAT 100
== END 2023-10-10 13:35 | disposition home or self-care (01) ==
PROVIDERS: Emergency Provider Nurse Practitioner; PCP Internal Medicine
DX: S20.211A Contusion of right front wall of thorax, initial encounter (principal); X50.0XXA Overexertion from strenuous movement or load, initial encounter; K21.9 Gastro-esophageal reflux disease without esophagitis; E78.5 Hyperlipidemia, unspecified; I10 Essential (primary) hypertension; G47.33 Obstructive sleep apnea (adult) (pediatric); R73.03 Prediabetes; Z87.891 Personal history of nicotine dependence
CPT/HCPCS: 71101; 99213; G0463

== ENCOUNTER → 2023-11-02 12:32 | Outpatient (CLI) | payer BC, SELFPAY ==
--- NOTE | ~2023-11-02 | MM_ITS ---
EXAMINATION: MM screening caio BI w frida HISTORY: Screening TECHNIQUE: Craniocaudal and mediolateral oblique 3-D tomosynthesis images were obtained and synthetic 2-D images were generated. CAD analysis was submitted and interpreted. COMPARISON: Comparison to multiple prior studies sequentially, with oldest reviewed study dated 01/22. BREAST PARENCHYMAL COMPOSITION: . Breast composed of scattered areas of fibroglandular density FINDINGS: There is no evidence of suspicious mass, calcification, or architectural distortion to sugg est malignancy in either breast. There has been no suspicious interval change. IMPRESSION: 1. No mammographic evidence of malignancy. 2. Recommend routine screening mammography in one year. BI-RADS Category 1: Negative Reviewed, dictated and finalized at location A. ANIZED FIBER UNIT OPERATOR
== END ==
PROVIDERS: PCP Internal Medicine; Visit Provider Obstetrics & Gynecology
DX: Z12.31 Encounter for screening mammogram for malignant neoplasm of breast (principal)
CPT/HCPCS: 77063; 77067

== ENCOUNTER 2023-12-21 16:26 | Outpatient (CLI) | payer BC, SELFPAY ==
--- NOTE | ~2023-12-21 | XR_ITS ---
XR shoulder RT min 2V DATE: 12/21/2023 16:50 INDICATION: Right shoulder pain TECHNIQUE: 4 views COMPARISON: None FINDINGS: No fracture or dislocation, periosteal reaction or bone destruction. Normal alignment at th e acromioclavicular and glenohumeral joints. IMPRESSION: No significant abnormality Reviewed, dictated and finalized at location B. IMPRESSION: No significant abnormality
== END 2023-12-21 16:27 ==
LOC: MICIMG 16:27
PROVIDERS: PCP Internal Medicine; Visit Provider Internal Medicine
DX: M25.511 Pain in right shoulder (principal)
CPT/HCPCS: 73030

== ENCOUNTER 2024-02-08 13:54 | Outpatient (CLI) | payer BC, SELFPAY ==
--- NOTE | ~2024-02-08 | XR_ITS ---
EXAMINATION: XR chest 2V DATE: 02/08/2024 14:24 INDICATION: Shortest of breath. TECHNIQUE: Frontal and lateral views of the chest were obtained. COMPARISON: Chest 2 views 11/17/2022 FINDINGS: There is no pneumonia, pleural effusion, or pneumothorax. The heart size is normal. There i s a chronic compression fracture in lower thoracic spine. IMPRESSION: 1. No acute cardiopulmonary disease. Reviewed, dictated and finalized at location A.
--- NOTE | ~2024-02-08 | XR_ITS ---
EXAMINATION: XR sinus min 3V DATE: 02/08/2024 14:24 INDICATION: Shortness of breath. TECHNIQUE: 6 views of the paranasal sinuses were obtained. COMPARISON: None. FINDINGS: Bone alignment is normal. No fracture. The paranasal sinuses are grossly clear. IMPRESSION: 1. Normal paranasal sinuses. Reviewed, dictated and finalized at location A.
[2024-02-08 09:40] LABS: Influenza A QL RT-PCR Negative (Negative); Influenza B QL RT-PCR Negative (Negative); RSV RNA, RT-PCR Negative (Negative); SARS-CoV-2 RNA PCR Negative (Negative)
[2024-02-08 14:19] LABS: Basophils Percent Auto 0.2 % (0.2-1.2); Eosinophils Absolute Auto 0.1 K/mm3 (0-0.3); Hematocrit 43.2 % (37.0-47.0); Hemoglobin 14.1 g/dL (12.0-15.0); Immature Granulocyte Absolute 0.02 K/mm3 (0.00-0.031); Immature Granulocyte Percent A 0.5 % (0-0.5); Lymphocytes Absolute Auto 1.69 K/mm3 (0.9-3.2); Lymphocytes Percent Auto 38.7 % (18.3-44.2); Mean Corpuscular HGB Conc 32.6 g/dl (32-36); Mean Corpuscular Hemoglobin 30.8 pg (26-34); Mean Corpuscular Volume 94.3 fl (80-100); Mean Platelet Volume 9.4 fl (7.4-10.4); Monocytes Absolute Auto 0.5 K/mm3 (0.1-0.6); Monocytes Percent Auto 11.4 % (2.6-8.5); Neutrophils Percent Auto 46.2 % (45.5-73.1); Platelet Count Result 313 k/mm3 (150-375); Red Blood Count 4.58 M/mm3 (4.2-5.4); Red Cell Distribution Width 13.9 % (11.5-14.5); White Blood Count 4.4 K/mm3 (4.5-10.0)
== END 2024-02-08 13:55 | disposition home or self-care (01) ==
PROVIDERS: PCP Internal Medicine; Visit Provider Internal Medicine
DX: R06.02 Shortness of breath (principal); R69 Illness, unspecified; R50.9 Fever, unspecified
CPT/HCPCS: 36415; 70220; 71046; 85025; 87637

== ENCOUNTER 2024-03-29 14:11 | Outpatient (CLI) | payer BC, SELFPAY ==
--- NOTE | ~2024-03-29 | XR_ITS ---
XR abdomen/kub 1V Ordering provider: Rashid Easton MD History: . R07.81 - Pleurodynia . Comparison: None. FINDINGS: BOWEL: Nonobstructive bowel gas pattern. ORGANOMEGALY: None. SIGNIFICANT PATHOLOGIC CALCIFICATIONS: None. OTHER: No free air is seen under the diaphragm. Degenerative changes of the spine. Pubic symphysitis. IMPRESSION: NO ACUTE ABDOMINAL FINDINGS. Reviewed, dictated and finalized at location A.
--- NOTE | ~2024-03-29 | XR_ITS ---
XR ribs BI 3V w CXR 2V Ordering provider: Rashid Easton MD History: . R07.81 - Pleurodynia . Comparison: February 08, 2024 FINDINGS: BONES: No acute rib fracture. MEDIASTINUM: The cardiac silhouette is not enlarged. LUNGS: No effusions or infiltrates. No pneumothorax. SOFT TISSUES: Normal. Degenerative changes of the spine. IMPRESSION: No acute osseous abnormality of the bilateral ribs. Reviewed, dictated and finalized at location A.
== END 2024-03-29 14:12 | disposition home or self-care (01) ==
LOC: ANHIMG 14:13
PROVIDERS: PCP Internal Medicine; Visit Provider Internal Medicine
DX: R07.81 Pleurodynia (principal)
CPT/HCPCS: 71046; 71110; 74018

== ENCOUNTER 2024-06-07 11:29 | Outpatient (CLI) | payer BC, SELFPAY ==
--- NOTE | ~2024-06-07 | XR_ITS ---
Right Hand Technique: PA, oblique, and lateral views were obtained. Clinical History: Status post fall Findings: No acute fracture or dislocation is seen. Osseous alignment is anatomic. Joint spaces are p reserved. Soft tissues are unremarkable. Impression: Unremarkable right hand. Reviewed, dictated and finalized at location . Impression: Unremarkable right hand.
--- NOTE | ~2024-06-07 | XR_ITS ---
Right wrist Technique: PA, oblique, lateral, and ulnar deviation views were obtained. Clinical History: Status post fall Findings: No acute fracture or dislocation is seen. Osseous alignment is anatomic. Joint spaces are p reserved. Soft tissues are unremarkable. Impression: Unremarkable right wrist radiographs. Reviewed, dictated and finalized at location . Impression: Unremarkable right wrist radiographs.
== END 2024-06-07 11:30 | disposition home or self-care (01) ==
PROVIDERS: PCP Internal Medicine; Visit Provider Internal Medicine
DX: S69.91XA Unspecified injury of right wrist, hand and finger(s), initial encounter (principal); W19.XXXA Unspecified fall, initial encounter
CPT/HCPCS: 73110; 73130

== ENCOUNTER 2024-11-04 10:26 | Outpatient (CLI) | payer BC, SELFPAY ==
--- NOTE | ~2024-11-04 | MM_ITS ---
EXAMINATION: MM screening caio BI w frida HISTORY: Screening TECHNIQUE: Craniocaudal and mediolateral oblique 3-D tomosynthesis images were obtained and synthetic 2-D images were generated. CAD analysis was submitted and interpreted. COMPARISON: Comparison to multiple prior studies sequentially, with oldest reviewed study dated 01/22. BREAST PARENCHYMAL COMPOSITION: Not dense: There are scattered areas of fibroglandular density. FINDINGS: There is no evidence of suspicious mass, calcification, or architectural distortion to sugg est malignancy in either breast. There has been no suspicious interval change. IMPRESSION: 1. No mammographic evidence of malignancy. 2. Recommend routine screening mammography in one year. BI-RADS Category 1: Negative Reviewed, dictated and finalized at location A. ANICAL MANUFACTURING TECHNICIAN
== END 2024-11-04 10:27 | disposition home or self-care (01) ==
LOC: MICIMG 10:27
PROVIDERS: PCP Internal Medicine; Visit Provider Obstetrics & Gynecology
DX: Z12.31 Encounter for screening mammogram for malignant neoplasm of breast (principal)
CPT/HCPCS: 77063; 77067

== ENCOUNTER 2025-07-24 11:18 | Outpatient (CLI) | payer BC, SELFPAY ==
--- NOTE | ~2025-07-24 | US_ITS ---
EXAMINATION: US venous doppler LE RT DATE: 07/24/2025 11:48 INDICATION: Right lower limb pain TECHNIQUE: Grayscale ultrasound images without and with compression and Doppler ultrasound images of the right lower extremity veins were obtained. COMPARISON: None. FINDINGS: The visualized portions of right common femoral vein, profunda (deep) femoral vein, femoral vein, popliteal vein, peroneal trunk, posterior tibial veins, peroneal veins, gastrocnemius vein and greater saphenous vein outflow are patent. IMPRESSION: 1. No deep venous thrombosis in the right lower limb. Reviewed, dictated and finalized at location A.
== END 2025-07-24 11:19 | disposition home or self-care (01) ==
PROVIDERS: PCP Internal Medicine; Visit Provider Internal Medicine
DX: M79.604 Pain in right leg (principal); M79.89 Other specified soft tissue disorders
CPT/HCPCS: 93971